=== PATIENT | female | born 1935 | race Caucasian/White ===

== ENCOUNTER 2019-03-27 05:22 | Inpatient (IN) | payer MEDICARE, BC ==
[2019-03-27] MEDS ORDERED: SEVOFLURANE 15 MIN (07:20)
[2019-03-27] MEDS ORDERED: ROPIVACAINE 0.5 % 30 ML VIAL (07:23)
[2019-03-27] MEDS ORDERED: MIDAZOLAM 1 MG/ML 2 ML INJ (07:34)
[2019-03-27] MEDS ORDERED: FENTAnyl 50 MCG/ML VIAL ×2 (07:38→07:39)
[2019-03-27] MEDS ORDERED: PHENYLephrine (100 MCG/ML) 10ML SYG (07:52)
[2019-03-27] MEDS ORDERED: ONDANSETRON 4 MG INJ (08:07)
[2019-03-27] MEDS ORDERED: DEXAMETHASONE 4 MG/ML 5 ML INJ (08:07)
[2019-03-27] MEDS ORDERED: FAMOTIDINE 20 MG INJ (08:10)
[2019-03-27] MEDS ORDERED: EPHEDrine 25 MG/5 ML SYG (08:13)
[2019-03-27] MEDS ORDERED: LIDOCAINE 2% (SDV) 5 ML INJ (08:14)
[2019-03-27] MEDS ORDERED: ROCURONIUM 50 MG INJ (08:14)
[2019-03-27] MEDS ORDERED: SUCCINYLCHOLINE CHLORIDE 100 MG/5 ML SYG IV (08:14)
[2019-03-27] MEDS ORDERED: PROPOFOL 20 ML (08:14)
[2019-03-27] MEDS ORDERED: CEFAZOLIN 1 GM INJ ×2 (08:40→11:29)
[2019-03-27] MEDS ORDERED: POVIDONE IODINE 10% 28.4 GM OINT (09:55)
[2019-03-27] MEDS ORDERED: MEPERIDINE 25 MG INJ IV (10:30)
[2019-03-27] MEDS ORDERED: HYDROmorphONE 1 MG/5 ML IV SYRINGE IV (10:30)
[2019-03-27] MEDS ORDERED: FENTAnyl 50 MCG/ML VIAL IV (10:30)
[2019-03-27] MEDS ORDERED: OXYCODONE/ACETAMINOPHEN (5/325) TAB PO (10:30)
[2019-03-27] MEDS ORDERED: EPHEDrine 25 MG/5 ML SYG IV (10:30)
[2019-03-27] MEDS ORDERED: NEOSTIGMINE 3 MG/3 ML SYRINGE (11:29)
[2019-03-27] MEDS ORDERED: GLYCOPYRROLATE 0.4 MG INJ (11:29)
[2019-03-27] MEDS: SOD CHLORIDE 0.9% 1,000 ML IV ×2 (11:43→23:27)
[2019-03-27] MEDS ORDERED: HYDROmorphONE 0.2 MG/ML PCA IV (12:00)
[2019-03-27] MEDS ORDERED: BISACODYL 10 MG SUPP PR (12:00)
[2019-03-27] MEDS ORDERED: DIPHENHYDRAMINE 25 MG CAP PO (12:00)
[2019-03-27] MEDS ORDERED: morphine 10 MG INJ IV (12:00)
[2019-03-27] MEDS: ONDANSETRON 4 MG INJ IV (12:09)
[2019-03-27] MEDS: HYDROmorphONE 1 MG/5 ML IV SYRINGE IV ×3 (12:10→12:23)
[2019-03-27] MEDS: CEFAZOLIN 1 GM/50 ML (PMX) 50 ML IVPB ×2 (12:23→21:08)
[2019-03-27] MEDS: HYDROmorphONE 0.2 MG/ML PCA IV (13:09)
[2019-03-27] MEDS: DIPHENHYDRAMINE 50 MG INJ IV (13:13)
[2019-03-27] MEDS ORDERED: ALBUMIN HUMAN 5% 250 ML (14:12)
[2019-03-27] MEDS: ALBUMIN HUMAN 5% 250 ML IV (14:47)
[2019-03-27] MEDS: SOD CHLORIDE 0.9% 250 ML IV (15:00)
[2019-03-27 15:17] LABS: ADD MAN DIFF? NO
[2019-03-27 15:31] LABS: WHITE BLOOD COUNT 7.8 10^3/ul (4.8-10.8)
[2019-03-27 15:31] LABS: BASOPHILS % 0.4 % (0.0-2.0); EOSINOPHILS % 0.1 % (0.0-7.0); HEMATOCRIT 34.7 % (37.0-47.0); LYMPHOCYTES # 0.6 10^3/ul (0.8-2.9); MEAN CORPUSCULAR HEMOGLOBIN 28.9 pg (29.0-33.0); MEAN CORPUSCULAR HGB CONC 31.7 g/dl (32.0-37.0); MEAN CORPUSCULAR VOLUME 91.1 fl (82.0-101.0); MONOCYTE # 0.1 10^3/ul (0.3-0.9); MONOCYTES % 1.4 % (0.0-11.0); NEUTROPHILS % 89.5 % (39.0-77.0); PLATELET COUNT 166 10^3/UL (140-415); RED BLOOD COUNT 3.81 10^6/ul (4.20-5.40); RED CELL DISTRIBUTION WIDTH 13.3 % (11.5-14.5)
[2019-03-27 15:35] LABS: ANION GAP 8 (5-13); BLOOD UREA NITROGEN 14 mg/dl (7-20); CARBON DIOXIDE 21 mmol/L (21-31); CHLORIDE 117 mmol/L (97-110); CREATININE 0.57 mg/dl (0.44-1.00); GLUCOSE 139 mg/dl (70-220)
[2019-03-27 15:39] LABS: POTASSIUM 3.4 mmol/L (3.5-5.1)
[2019-03-27 15:39] LABS: MAGNESIUM 1.7 mg/dl (1.7-2.5)
[2019-03-27 15:43] LABS: CALCIUM 7.9 mg/dl (8.4-10.2); SODIUM 146 mmol/L (135-144)
[2019-03-27 15:52] LABS: TROPONIN-I < 0.012 ng/ml (0.000-0.120)
[2019-03-27 16:10] LABS: THYROID STIMULATING HORMONE 0.822 MIU/L (0.465-4.680)
[2019-03-27] MEDS: PHENYLephrine 20MG IN 250 ML 250 ML IV (16:32)
[2019-03-27] MEDS: SOD CHLORIDE 0.9% 100 ML (18:50)
[2019-03-27 19:50] LABS: ADD MAN DIFF? NO
[2019-03-27 19:52] LABS: BASOPHILS % 0.2 % (0.0-2.0); HEMATOCRIT 32.8 % (37.0-47.0); HEMOGLOBIN 10.6 g/dl (12.0-16.0); LYMPHOCYTES # 0.7 10^3/ul (0.8-2.9); LYMPHOCYTES % 5.3 % (15.0-51.0); MEAN CORPUSCULAR HEMOGLOBIN 29.6 pg (29.0-33.0); MEAN CORPUSCULAR HGB CONC 32.3 g/dl (32.0-37.0); MEAN CORPUSCULAR VOLUME 91.6 fl (82.0-101.0); MEAN PLATELET VOLUME 11.2 fl (7.4-10.4); MONOCYTE # 0.4 10^3/ul (0.3-0.9); MONOCYTES % 2.9 % (0.0-11.0); NEUTROPHILS % 91.1 % (39.0-77.0); PLATELET COUNT 243 10^3/UL (140-415); RED BLOOD COUNT 3.58 10^6/ul (4.20-5.40); RED CELL DISTRIBUTION WIDTH 13.2 % (11.5-14.5)
[2019-03-27 19:52] LABS: WHITE BLOOD COUNT 13.1 10^3/ul (4.8-10.8)
[2019-03-27 20:07] LABS: ANION GAP 7 (5-13); BLOOD UREA NITROGEN 13 mg/dl (7-20); CALCIUM 7.5 mg/dl (8.4-10.2); CARBON DIOXIDE 23 mmol/L (21-31); CHLORIDE 114 mmol/L (97-110); CREATININE 0.51 mg/dl (0.44-1.00); GLUCOSE 140 mg/dl (70-220); POTASSIUM 3.8 mmol/L (3.5-5.1); SODIUM 144 mmol/L (135-144)
[2019-03-27 20:19] LABS: TROPONIN-I 0.246 ng/ml (0.000-0.120)
[2019-03-27] MEDS: ATORVASTATIN 10 MG TAB PO (21:00)
[2019-03-27] MEDS: SENNA/DOCUSATE NA (8.6MG/50MG) TAB PO (21:00)
[2019-03-27] MEDS: ASPIRIN 81 MG TAB PO (21:07)
[2019-03-27] MEDS: ALPRAZOLAM 0.25 MG TAB PO (21:08)
[2019-03-28] MEDS: CEFAZOLIN 1 GM/50 ML (PMX) 50 ML IVPB ×3 (04:52→20:12)
[2019-03-28 05:24] LABS: ADD MAN DIFF? NO
[2019-03-28 05:31] LABS: BASOPHILS % 0.1 % (0.0-2.0); LYMPHOCYTES # 1.1 10^3/ul (0.8-2.9); LYMPHOCYTES % 11.5 % (15.0-51.0); MEAN CORPUSCULAR HEMOGLOBIN 29.7 pg (29.0-33.0); MEAN CORPUSCULAR HGB CONC 32.1 g/dl (32.0-37.0); MEAN CORPUSCULAR VOLUME 92.4 fl (82.0-101.0); MEAN PLATELET VOLUME 11.1 fl (7.4-10.4); MONOCYTE # 0.7 10^3/ul (0.3-0.9); MONOCYTES % 7.9 % (0.0-11.0); NEUTROPHIL # 7.4 10^3/ul (1.6-7.5); NEUTROPHILS % 80.1 % (39.0-77.0); PLATELET COUNT 182 10^3/UL (140-415); RED BLOOD COUNT 3.03 10^6/ul (4.20-5.40); RED CELL DISTRIBUTION WIDTH 13.5 % (11.5-14.5)
[2019-03-28 05:31] LABS: WHITE BLOOD COUNT 9.2 10^3/ul (4.8-10.8)
[2019-03-28 05:44] LABS: ANION GAP 2 (5-13); BLOOD UREA NITROGEN 12 mg/dl (7-20); CALCIUM 7.1 mg/dl (8.4-10.2); CARBON DIOXIDE 25 mmol/L (21-31); CHLORIDE 117 mmol/L (97-110); CREATININE 0.55 mg/dl (0.44-1.00); GLUCOSE 93 mg/dl (70-220); MAGNESIUM 1.6 mg/dl (1.7-2.5); PHOSPHORUS 2.9 mg/dl (2.5-4.9); SODIUM 144 mmol/L (135-144)
[2019-03-28 05:55] LABS: CREATINE KINASE 128 IU/L (23-200)
[2019-03-28 05:59] LABS: CK INDEX 5.3; CK-MB 6.72 ng/ml (0.0-2.4)
[2019-03-28 06:18] LABS: TROPONIN-I 0.611 ng/ml (0.000-0.120)
[2019-03-28 06:36] LABS: POTASSIUM 3.6 mmol/L (3.5-5.1)
[2019-03-28] MEDS: POTASSIUM CHLORIDE (SR) 20 MEQ TAB PO (07:53)
[2019-03-28] MEDS: OXYCODONE/ACETAMINOPHEN (5/325) TAB PO ×3 (07:53→20:31)
[2019-03-28] MEDS: SENNA/DOCUSATE NA (8.6MG/50MG) TAB PO ×2 (08:05→20:12)
[2019-03-28] MEDS ORDERED: MAGNESIUM SULFATE 3 GM in DEXTROSE 5% 100 ML IVPB (08:30)
[2019-03-28] MEDS ORDERED: SIMVASTATIN 5 MG PO (09:00)
[2019-03-28 10:42] LABS: CREATINE KINASE 132 IU/L (23-200)
[2019-03-28 10:56] LABS: CK INDEX 4.3; CK-MB 5.67 ng/ml (0.0-2.4)
[2019-03-28 11:01] LABS: TROPONIN-I 0.598 ng/ml (0.000-0.120)
[2019-03-28] MEDS: ESTRADIOL 1 MG TAB PO (14:22)
[2019-03-28] MEDS: MAGNESIUM SULFATE 3 GM in DEXTROSE 5% 100 ML IVPB (14:22)
[2019-03-28] MEDS: SOD CHLORIDE 0.9% 1,000 ML IV (14:22)
[2019-03-28] MEDS: ONDANSETRON 4 MG INJ IV (17:16)
[2019-03-28] MEDS: RIVAROXABAN 10 MG TABLET PO (17:35)
[2019-03-28] MEDS: ATORVASTATIN 10 MG TAB PO ×2 (20:12→20:26)
[2019-03-29] MEDS: OXYCODONE/ACETAMINOPHEN (5/325) TAB PO ×2 (00:45→05:15)
[2019-03-29] MEDS: CEFAZOLIN 1 GM/50 ML (PMX) 50 ML IVPB (04:17)
[2019-03-29] MEDS: SOD CHLORIDE 0.9% 1,000 ML IV (05:16)
[2019-03-29 07:12] LABS: ADD MAN DIFF? NO
[2019-03-29 07:14] LABS: BASOPHILS % 0.3 % (0.0-2.0); EOSINOPHILS # 0.1 10^3/ul (0.0-0.5); HEMATOCRIT 28.9 % (37.0-47.0); HEMOGLOBIN 9.3 g/dl (12.0-16.0); LYMPHOCYTES # 1.1 10^3/ul (0.8-2.9); LYMPHOCYTES % 15.1 % (15.0-51.0); MEAN CORPUSCULAR HEMOGLOBIN 29.7 pg (29.0-33.0); MEAN CORPUSCULAR HGB CONC 32.2 g/dl (32.0-37.0); MEAN CORPUSCULAR VOLUME 92.3 fl (82.0-101.0); MONOCYTE # 0.6 10^3/ul (0.3-0.9); MONOCYTES % 8.6 % (0.0-11.0); NEUTROPHIL # 5.5 10^3/ul (1.6-7.5); NEUTROPHILS % 74.7 % (39.0-77.0); PLATELET COUNT 177 10^3/UL (140-415); RED BLOOD COUNT 3.13 10^6/ul (4.20-5.40); RED CELL DISTRIBUTION WIDTH 13.7 % (11.5-14.5)
[2019-03-29 07:14] LABS: WHITE BLOOD COUNT 7.3 10^3/ul (4.8-10.8)
[2019-03-29] MEDS: ESTRADIOL 1 MG TAB PO (08:59)
[2019-03-29] MEDS: SENNA/DOCUSATE NA (8.6MG/50MG) TAB PO (08:59)
[2019-03-29 09:44] LABS: ANION GAP 3 (5-13); BLOOD UREA NITROGEN 7 mg/dl (7-20); CALCIUM 7.4 mg/dl (8.4-10.2); CARBON DIOXIDE 29 mmol/L (21-31); CHLORIDE 110 mmol/L (97-110); GLUCOSE 103 mg/dl (70-220); MAGNESIUM 2.7 mg/dl (1.7-2.5); PHOSPHORUS 1.6 mg/dl (2.5-4.9); POTASSIUM 3.4 mmol/L (3.5-5.1); SODIUM 142 mmol/L (135-144)
[2019-03-29] MEDS: METOPROLOL (XL) 25 MG TAB PO (12:28)
[2019-03-29] MEDS: POTASSIUM CHLORIDE (SR) 20 MEQ TAB PO ×2 (12:43→12:54)
[2019-03-29] MEDS: RIVAROXABAN 10 MG TABLET PO (17:31)
[2019-03-29] MEDS ORDERED: MAGNESIUM HYDROXIDE 30ML CUP PO (21:00)
[2019-03-30] MEDS ORDERED: METOPROLOL (XL) 25 MG TAB PO (09:00)
== END 2019-03-29 18:15 | disposition home or self-care (01) | DRG 507 ==
LOC: SDS 05:22 → REC 11:43 → ICU 15:46 → TEL 03-28 23:52
PROC: 0LQ14ZZ Repair Right Shoulder Tendon, Percutaneous Endoscopic Approach (ICD-10-PCS; principal; 2019-03-27 07:00)
PROC: 0RHJ44Z Insertion of Internal Fixation Device into Right Shoulder Joint, Percutaneous Endoscopic Approach (ICD-10-PCS; 2019-03-27 07:00)
PROC: 0RNJ4ZZ Release Right Shoulder Joint, Percutaneous Endoscopic Approach (ICD-10-PCS; 2019-03-27 07:00)
PROC: 0PT90ZZ Resection of Right Clavicle, Open Approach (ICD-10-PCS; 2019-03-27 07:00)
DX: M75.41 Impingement syndrome of right shoulder (principal); S46.121A Laceration of muscle, fascia and tendon of long head of biceps, right arm, initial encounter; I47.1 Supraventricular tachycardia; M75.101 Unspecified rotator cuff tear or rupture of right shoulder, not specified as traumatic; I48.91 Unspecified atrial fibrillation; R00.1 Bradycardia, unspecified; M19.011 Primary osteoarthritis, right shoulder; E78.5 Hyperlipidemia, unspecified; X58.XXXA Exposure to other specified factors, initial encounter; M94.211 Chondromalacia, right shoulder; M65.811 Other synovitis and tenosynovitis, right shoulder; M75.51 Bursitis of right shoulder; I95.81 Postprocedural hypotension; R79.9 Abnormal finding of blood chemistry, unspecified; D64.9 Anemia, unspecified
CPT/HCPCS: 71275; 80048; 82550; 82553; 83735; 84100; 84443; 84484; 85025; 87081; 93005; 93306; 93970; 97161